=== PATIENT | female | born 1945 | race Caucasian/White ===

== ENCOUNTER 2018-01-09 13:39 | Inpatient (IN) | payer OTHER, MEDICARE ==
[2018-01-09 15:08] LABS: ADD MAN DIFF? NO
[2018-01-09 15:13] LABS: BASOPHIL # 0.1 10^3/ul (0.0-0.1); BASOPHILS % 0.3 % (0.0-2.0); EOSINOPHILS # 0.1 10^3/ul (0.0-0.5); EOSINOPHILS % 0.3 % (0.0-7.0); HEMATOCRIT 39.1 % (37.0-47.0); HEMOGLOBIN 12.6 g/dl (12.0-16.0); LYMPHOCYTES # 0.9 10^3/ul (0.8-2.9); LYMPHOCYTES % 5.2 % (15.0-51.0); MEAN CORPUSCULAR HEMOGLOBIN 28.1 pg (29.0-33.0); MEAN CORPUSCULAR HGB CONC 32.2 g/dl (32.0-37.0); MEAN CORPUSCULAR VOLUME 87.3 fl (82.0-101.0); MEAN PLATELET VOLUME 11.3 fl (7.4-10.4); MONOCYTE # 1.3 10^3/ul (0.3-0.9); MONOCYTES % 7.3 % (0.0-11.0); NEUTROPHIL # 15.2 10^3/ul (1.6-7.5); NEUTROPHILS % 86.4 % (39.0-77.0); PLATELET COUNT 237 10^3/UL (140-415); RED BLOOD COUNT 4.48 10^6/ul (4.20-5.40)
[2018-01-09 15:13] LABS: WHITE BLOOD COUNT 17.5 10^3/ul (4.8-10.8)
[2018-01-09] MEDS: CEFEPIME 2GM/50 ML (PMX) 50 ML IVPB (15:13)
[2018-01-09] MEDS: SODIUM CHLORIDE 0.9% 1L BAG IV* (15:13)
[2018-01-09] MEDS: ACETAMINOPHEN 325 MG TAB PO (15:13)
[2018-01-09 15:31] LABS: INR 1.05; PROTIME 13.8 Sec (11.9-14.9); PT RATIO 1.1
[2018-01-09 15:33] LABS: ANION GAP 11 (5-13); BLOOD UREA NITROGEN 15 mg/dl (7-20); CALCIUM 9.4 mg/dl (8.4-10.2); CARBON DIOXIDE 26 mmol/L (21-31); CHLORIDE 101 mmol/L (97-110); CREATININE 0.57 mg/dl (0.44-1.00); GLUCOSE 172 mg/dl (70-220); POTASSIUM 3.6 mmol/L (3.5-5.1); SODIUM 138 mmol/L (135-144)
[2018-01-09 15:44] LABS: TROPONIN-I < 0.012 ng/ml (0.000-0.120)
[2018-01-09] MEDS: VANCOMYCIN 1 GM (PMX) 250 ML IVPB (15:45)
[2018-01-09 17:15] LABS: ADD UMIC YES; UR ASCORBIC ACID NEGATIVE (NEGATIVE); UR BACTERIA FEW /HPF (NONE SEEN); UR BILIRUBIN (Dip) NEGATIVE (NEGATIVE); UR BLOOD (Dip) 1+ mg/dL (NEGATIVE); UR CLARITY SLIGHTLY CLOUDY (CLEAR); UR COLOR YELLOW (YELLOW); UR GLUCOSE (Dip) NEGATIVE (NEGATIVE); UR KETONES (Dip) NEGATIVE (NEGATIVE); UR LEUKOCYTE ESTERASE (Dip) 2+ Leu/ul (NEGATIVE); UR MUCUS FEW /HPF (NONE SEEN); UR NITRITE (Dip) POSITIVE (NEGATIVE); UR RBC 8 /HPF (0-5); UR SPECIFIC GRAVITY (Dip) 1.017 (1.003-1.030); UR SQUAMOUS EPITHELIAL CELL MODERATE /HPF (FEW); UR TOTAL PROTEIN (Dip) 2+ mg/dl (NEGATIVE); UR UROBILINOGEN (Dip) NEGATIVE (NEGATIVE); UR WBC > 182 /HPF (0-5)
[2018-01-09] MEDS: ONDANSETRON 4 MG INJ IV (18:14)
[2018-01-09] MEDS: morphine 4 MG/ML VIAL IV (18:15)
[2018-01-09] MEDS ORDERED: ONDANSETRON 4 MG INJ IV ×2 (18:30→21:00)
[2018-01-09] MEDS ORDERED: ACETAMINOPHEN 325 MG TAB PO ×2 (18:30→21:00)
[2018-01-09] MEDS ORDERED: NACL 0.9% 3 ML SYG IV (21:00)
[2018-01-09] MEDS ORDERED: GLUCOSE GEL 15 GRAM TUBE PO ×2 (21:00)
[2018-01-09] MEDS ORDERED: GLUCOSE GEL 15 GRAM TUBE BUCCAL (21:00)
[2018-01-09] MEDS ORDERED: BISACODYL 10 MG SUPP PR (21:00)
[2018-01-09] MEDS ORDERED: MAGNESIUM HYDROXIDE 30ML CUP PO (21:00)
[2018-01-09] MEDS: INSULIN ASPART [NOVOLOG] 3 ML PEN SC (21:00)
[2018-01-09] MEDS ORDERED: DEXTROSE 50% 50 ML SYRINGE IV ×2 (21:00)
[2018-01-09] MEDS ORDERED: DOCUSATE SODIUM 100 MG CAP PO (21:00)
[2018-01-09] MEDS ORDERED: GLUCAGON 1 MG INJ IM (21:00)
[2018-01-09] MEDS: HYDROCODONE/APAP (5/325) TAB PO (22:19)
[2018-01-09] MEDS: LOSARTAN 50 MG TAB PO (22:19)
[2018-01-09] MEDS: FAMOTIDINE 20 MG TAB PO (22:19)
[2018-01-09] MEDS: SOD CHLORIDE 0.9% 1,000 ML IV (22:27)
[2018-01-10] MEDS: MEROPENEM 1 GM/50ML(PMX) 50 ML IVPB ×4 (00:12→22:06)
[2018-01-10] MEDS: ACCU-CHEK XX (02:00)
[2018-01-10] MEDS: HYDROCODONE/APAP (5/325) TAB PO ×2 (05:33→17:31)
[2018-01-10 05:42] LABS: ADD MAN DIFF? NO
[2018-01-10 05:49] LABS: BASOPHIL # 0.1 10^3/ul (0.0-0.1); BASOPHILS % 0.3 % (0.0-2.0); EOSINOPHILS % 0.1 % (0.0-7.0); HEMATOCRIT 33.7 % (37.0-47.0); HEMOGLOBIN 10.8 g/dl (12.0-16.0); LYMPHOCYTES # 1.6 10^3/ul (0.8-2.9); LYMPHOCYTES % 9.3 % (15.0-51.0); MEAN CORPUSCULAR HEMOGLOBIN 28.1 pg (29.0-33.0); MEAN CORPUSCULAR VOLUME 87.5 fl (82.0-101.0); MEAN PLATELET VOLUME 12.1 fl (7.4-10.4); MONOCYTES % 5.7 % (0.0-11.0); NEUTROPHIL # 14.5 10^3/ul (1.6-7.5); NEUTROPHILS % 84.1 % (39.0-77.0); PLATELET COUNT 205 10^3/UL (140-415); RED BLOOD COUNT 3.85 10^6/ul (4.20-5.40); RED CELL DISTRIBUTION WIDTH 14.4 % (11.5-14.5)
[2018-01-10 05:49] LABS: WHITE BLOOD COUNT 17.3 10^3/ul (4.8-10.8)
[2018-01-10 06:17] LABS: ANION GAP 8 (5-13); BLOOD UREA NITROGEN 12 mg/dl (7-20); CALCIUM 8.2 mg/dl (8.4-10.2); CARBON DIOXIDE 26 mmol/L (21-31); CHLORIDE 103 mmol/L (97-110); CREATININE 0.51 mg/dl (0.44-1.00); GLUCOSE 145 mg/dl (70-220); MAGNESIUM 1.8 mg/dl (1.7-2.5); PHOSPHORUS 3.3 mg/dl (2.5-4.9); POTASSIUM 3.7 mmol/L (3.5-5.1); SODIUM 137 mmol/L (135-144)
[2018-01-10] MEDS: SOD CHLORIDE 0.9% 1,000 ML IV ×2 (06:42→10:05)
[2018-01-10] MEDS: INSULIN ASPART [NOVOLOG] 3 ML PEN SC ×7 (08:02→21:00)
[2018-01-10] MEDS: FAMOTIDINE 20 MG TAB PO ×2 (08:03→21:13)
[2018-01-10] MEDS: LOSARTAN 50 MG TAB PO ×2 (08:03→21:12)
[2018-01-10] MEDS: GABAPENTIN 100 MG CAP PO ×3 (09:55→21:13)
[2018-01-10] MEDS: INSULIN GLARGINE [LANTus] (100 UNITS/ML) SYG SC (20:14)
[2018-01-11] MEDS: SOD CHLORIDE 0.9% 1,000 ML IV (01:27)
[2018-01-11] MEDS: hydrALAzine 20 MG INJ IV (01:37)
[2018-01-11] MEDS: ACCU-CHEK XX (02:00)
[2018-01-11 05:13] LABS: ADD MAN DIFF? NO
[2018-01-11 05:23] LABS: WHITE BLOOD COUNT 10.2 10^3/ul (4.8-10.8)
[2018-01-11 05:23] LABS: BASOPHILS % 0.3 % (0.0-2.0); EOSINOPHILS # 0.1 10^3/ul (0.0-0.5); EOSINOPHILS % 1.4 % (0.0-7.0); HEMATOCRIT 32.4 % (37.0-47.0); HEMOGLOBIN 10.3 g/dl (12.0-16.0); LYMPHOCYTES # 1.4 10^3/ul (0.8-2.9); LYMPHOCYTES % 13.3 % (15.0-51.0); MEAN CORPUSCULAR HEMOGLOBIN 27.8 pg (29.0-33.0); MEAN CORPUSCULAR HGB CONC 31.8 g/dl (32.0-37.0); MEAN CORPUSCULAR VOLUME 87.3 fl (82.0-101.0); MEAN PLATELET VOLUME 12.1 fl (7.4-10.4); MONOCYTE # 0.9 10^3/ul (0.3-0.9); MONOCYTES % 8.8 % (0.0-11.0); NEUTROPHIL # 7.7 10^3/ul (1.6-7.5); NEUTROPHILS % 75.6 % (39.0-77.0); PLATELET COUNT 185 10^3/UL (140-415); RED BLOOD COUNT 3.71 10^6/ul (4.20-5.40)
[2018-01-11] MEDS: MEROPENEM 1 GM/50ML(PMX) 50 ML IVPB (05:37)
[2018-01-11 05:42] LABS: ANION GAP 7 (5-13); BLOOD UREA NITROGEN 8 mg/dl (7-20); CALCIUM 7.9 mg/dl (8.4-10.2); CARBON DIOXIDE 24 mmol/L (21-31); CHLORIDE 105 mmol/L (97-110); CREATININE 0.37 mg/dl (0.44-1.00); GLUCOSE 128 mg/dl (70-220); POTASSIUM 3.3 mmol/L (3.5-5.1); SODIUM 136 mmol/L (135-144)
[2018-01-11] MEDS: INSULIN ASPART [NOVOLOG] 3 ML PEN SC ×7 (08:09→20:13)
[2018-01-11] MEDS: POTASSIUM CHLORIDE (SR) 20 MEQ TAB PO (08:31)
[2018-01-11] MEDS: AMLODIPINE 10 MG TAB PO (08:32)
[2018-01-11] MEDS: GABAPENTIN 300 MG CAP PO ×2 (08:32→20:12)
[2018-01-11] MEDS: LOSARTAN 50 MG TAB PO (08:32)
[2018-01-11] MEDS: ATENOLOL 50 MG TAB PO (08:33)
[2018-01-11] MEDS: FAMOTIDINE 20 MG TAB PO ×2 (08:33→20:12)
[2018-01-11] MEDS: CIPROFLOXACIN 400MG/D5W 200 ML IVPB ×2 (09:08→20:11)
[2018-01-11] MEDS: INSULIN GLARGINE [LANTus] (100 UNITS/ML) SYG SC (20:10)
[2018-01-11] MEDS: HYDROCODONE/APAP (5/325) TAB PO (20:24)
[2018-01-12] MEDS: hydrALAzine 20 MG INJ IV ×2 (01:42→13:27)
[2018-01-12] MEDS: ACCU-CHEK XX (02:00)
[2018-01-12 06:43] LABS: ANION GAP 9 (5-13); BLOOD UREA NITROGEN 10 mg/dl (7-20); CALCIUM 8.4 mg/dl (8.4-10.2); CARBON DIOXIDE 24 mmol/L (21-31); CHLORIDE 106 mmol/L (97-110); CREATININE 0.36 mg/dl (0.44-1.00); GLUCOSE 119 mg/dl (70-220); POTASSIUM 3.6 mmol/L (3.5-5.1); SODIUM 139 mmol/L (135-144)
[2018-01-12] MEDS: INSULIN ASPART [NOVOLOG] 3 ML PEN SC ×7 (08:00→21:00)
[2018-01-12] MEDS: AMLODIPINE 10 MG TAB PO (09:38)
[2018-01-12] MEDS: GABAPENTIN 300 MG CAP PO ×2 (09:39→20:32)
[2018-01-12] MEDS: FAMOTIDINE 20 MG TAB PO ×2 (09:39→20:32)
[2018-01-12] MEDS: ATENOLOL 50 MG TAB PO (09:39)
[2018-01-12] MEDS: CIPROFLOXACIN 400MG/D5W 200 ML IVPB (09:39)
[2018-01-12] MEDS: LOSARTAN 50 MG TAB PO (09:39)
[2018-01-12] MEDS: CHLORTHALIDONE 25 MG TAB PO (11:06)
[2018-01-12] MEDS: DOCUSATE SODIUM 100 MG CAP PO (13:27)
[2018-01-12] MEDS: POLYETHYLENE GLYCOL 17 GM PACKET PO (13:27)
[2018-01-12] MEDS ORDERED: LABETALOL HCL 20MG INJ IV (14:00)
[2018-01-12] MEDS: INSULIN GLARGINE [LANTus] (100 UNITS/ML) SYG SC (20:33)
[2018-01-12] MEDS: INFLUENZA VIRUS VACCINE 0.5 ML (DISPENSING) IM* (21:06)
== END 2018-01-12 21:09 | DRG 872 ==
LOC: E/R 13:39 → PP2 18:19
DX: A41.51 Sepsis due to Escherichia coli [E. coli] (principal); N12 Tubulo-interstitial nephritis, not specified as acute or chronic; A41.9 Sepsis, unspecified organism; M72.2 Plantar fascial fibromatosis; I10 Essential (primary) hypertension; E11.9 Type 2 diabetes mellitus without complications; E78.5 Hyperlipidemia, unspecified; B96.20 Unspecified Escherichia coli [E. coli] as the cause of diseases classified elsewhere; M77.31 Calcaneal spur, right foot; Z86.73 Personal history of transient ischemic attack (TIA), and cerebral infarction without residual deficits; Z79.4 Long term (current) use of insulin
CPT/HCPCS: 36415; 70450; 71045; 73510; 73610-RT; 76775; 80048; 81001; 82962; 83036; 83605; 83735; 84100; 84484; 85025; 85610; 85730; 87040; 87086; 87400; 90686; 93005; 96374; 96375; 97161; 99291-25

== ENCOUNTER 2018-08-20 12:05 | Observation (INO) | payer OTHER, MEDICARE ==
[2018-08-20 12:49] LABS: ADD MAN DIFF? NO
[2018-08-20] MEDS: LABETALOL HCL 20MG INJ IV (12:51)
[2018-08-20 13:14] LABS: INR 0.86; PROTIME 11.8 Sec (11.9-14.9); PT RATIO 0.9
[2018-08-20 13:15] LABS: PARTIAL THROMBOPLASTIN TIME 21.1 Sec (23.0-35.0)
[2018-08-20 13:18] LABS: ALANINE AMINOTRANSFERASE 19 IU/L (13-69); ALBUMIN 4.5 g/dl (3.3-4.9); ALBUMIN/GLOBULIN RATIO 1.32; ALKALINE PHOSPHATASE 72 IU/L (42-121); ANION GAP 11 (5-13); ASPARTATE AMINO TRANSFERASE 26 IU/L (15-46); BILIRUBIN,INDIRECT 0.5 mg/dl (0-1.1); BILIRUBIN,TOTAL 0.5 mg/dl (0.2-1.3); BLOOD UREA NITROGEN 17 mg/dl (7-20); CALCIUM 9.8 mg/dl (8.4-10.2); CARBON DIOXIDE 23 mmol/L (21-31); CHLORIDE 105 mmol/L (97-110); CREATINE KINASE 105 IU/L (23-200); CREATININE 0.45 mg/dl (0.44-1.00); GLUCOSE 97 mg/dl (70-220); LIPASE 65 U/L (23-300); POTASSIUM 4.1 mmol/L (3.5-5.1); SODIUM 139 mmol/L (135-144); TOTAL PROTEIN 7.9 g/dl (6.1-8.1)
[2018-08-20] MEDS: NICARDipine HCL 30 MG CAPSULE PO (13:21)
[2018-08-20 13:32] LABS: ABNORMAL IP MESSAGE 1; ADD UMIC NO; B-TYPE NATRIURETIC PEPTIDE 588 PG/ML (0-125); BASOPHILS % 0.4 % (0.0-2.0); CK INDEX 1.6; CK-MB 1.65 ng/ml (0.0-2.4); EOSINOPHILS # 0.2 10^3/ul (0.0-0.5); EOSINOPHILS % 1.7 % (0.0-7.0); HEMATOCRIT 38.7 % (37.0-47.0); HEMOGLOBIN 12.6 g/dl (12.0-16.0); LYMPHOCYTES # 2.4 10^3/ul (0.8-2.9); MEAN CORPUSCULAR HEMOGLOBIN 28.2 pg (29.0-33.0); MEAN CORPUSCULAR HGB CONC 32.6 g/dl (32.0-37.0); MEAN CORPUSCULAR VOLUME 86.6 fl (82.0-101.0); MEAN PLATELET VOLUME 13.5 fl (7.4-10.4); MONOCYTE # 0.7 10^3/ul (0.3-0.9); MONOCYTES % 6.7 % (0.0-11.0); NEUTROPHIL # 6.4 10^3/ul (1.6-7.5); NEUTROPHILS % 65.9 % (39.0-77.0); PLATELET COUNT 188 10^3/UL (140-415); RED BLOOD COUNT 4.47 10^6/ul (4.20-5.40); RED CELL DISTRIBUTION WIDTH 13.5 % (11.5-14.5); TROPONIN-I < 0.012 ng/ml (0.000-0.120); UR ASCORBIC ACID NEGATIVE (NEGATIVE); UR BILIRUBIN (Dip) NEGATIVE (NEGATIVE); UR BLOOD (Dip) NEGATIVE (NEGATIVE); UR CLARITY CLEAR (CLEAR); UR COLOR STRAW (YELLOW); UR GLUCOSE (Dip) NEGATIVE (NEGATIVE); UR KETONES (Dip) NEGATIVE (NEGATIVE); UR LEUKOCYTE ESTERASE (Dip) NEGATIVE Leu/ul (NEGATIVE); UR NITRITE (Dip) NEGATIVE (NEGATIVE); UR SPECIFIC GRAVITY (Dip) 1.005 (1.003-1.030); UR TOTAL PROTEIN (Dip) NEGATIVE (NEGATIVE); UR UROBILINOGEN (Dip) NEGATIVE (NEGATIVE)
[2018-08-20 13:32] LABS: WHITE BLOOD COUNT 9.7 10^3/ul (4.8-10.8)
[2018-08-20 13:36] LABS: POSITIVE DIFF @See below
[2018-08-20] MEDS: ONDANSETRON 4 MG INJ IV (13:36)
[2018-08-20] MEDS: morphine 4 MG/ML VIAL IV (13:36)
[2018-08-20 13:52] LABS: URIC ACID 4.9 mg/dl (3.1-7.9)
[2018-08-20 13:53] LABS: ACETAMINOPHEN < 10.0 ug/ml (10.0-30.0)
[2018-08-20 13:53] LABS: ETHANOL < 10.0 mg/dl (0-0); SALICYLATE < 1.0 mg/dl (5.0-30.0)
[2018-08-20] MEDS: GABAPENTIN 300 MG CAP PO ×2 (14:56→22:45)
[2018-08-20] MEDS ORDERED: ACETAMINOPHEN 325 MG TAB PO (15:00)
[2018-08-20] MEDS ORDERED: ONDANSETRON 4 MG INJ IV (15:00)
[2018-08-20] MEDS ORDERED: NON-FORMULARY/PATIENT OWN MED (Sitagliptin* (Januvia*) 50 MG) PO (17:30)
[2018-08-20] MEDS: INSULIN ASPART [NOVOLOG] 3 ML PEN SC ×2 (17:55→20:17)
[2018-08-20] MEDS: ATENOLOL 50 MG TAB PO (18:00)
[2018-08-20] MEDS: LOSARTAN 50 MG TAB PO (18:19)
[2018-08-20] MEDS: ASPIRIN (EC) 81 MG TAB PO (18:20)
[2018-08-20] MEDS: LINAGLIPTIN 5 MG TABLET PO (18:20)
[2018-08-20] MEDS: metFORMIN 500 MG TAB PO (18:20)
[2018-08-20] MEDS: AMLODIPINE 10 MG TAB PO (18:20)
[2018-08-20] MEDS ORDERED: GLUCOSE GEL 15 GRAM TUBE BUCCAL (18:30)
[2018-08-20] MEDS ORDERED: GLUCAGON 1 MG INJ IM (18:30)
[2018-08-20] MEDS ORDERED: GLUCOSE GEL 15 GRAM TUBE PO ×2 (18:30)
[2018-08-20] MEDS ORDERED: DEXTROSE 50% 50 ML SYRINGE IV ×2 (18:30)
[2018-08-20] MEDS: morphine 2 MG INJ IV ×2 (19:55→22:53)
[2018-08-21] MEDS: LINAGLIPTIN 5 MG TABLET PO (08:28)
[2018-08-21] MEDS: GABAPENTIN 300 MG CAP PO (08:28)
[2018-08-21] MEDS: ASPIRIN (EC) 81 MG TAB PO (08:28)
[2018-08-21] MEDS: ATENOLOL 50 MG TAB PO (08:29)
[2018-08-21] MEDS: AMLODIPINE 10 MG TAB PO (08:29)
[2018-08-21] MEDS: LOSARTAN 50 MG TAB PO (08:29)
[2018-08-21] MEDS: INSULIN ASPART [NOVOLOG] 3 ML PEN SC ×2 (09:04→11:50)
[2018-08-21] MEDS: metFORMIN 500 MG TAB PO (12:29)
== END 2018-08-21 15:01 | disposition home or self-care (01) ==
LOC: E/R 12:05 → TEL 14:45
DX: I16.0 Hypertensive urgency (principal); I10 Essential (primary) hypertension; E78.5 Hyperlipidemia, unspecified; E11.40 Type 2 diabetes mellitus with diabetic neuropathy, unspecified; F03.90 Unspecified dementia, unspecified severity, without behavioral disturbance, psychotic disturbance, mood disturbance, and anxiety; Z86.73 Personal history of transient ischemic attack (TIA), and cerebral infarction without residual deficits
CPT/HCPCS: 36415; 70450; 70551; 71045; 73630; 80053; 80307; 81003; 82550; 82553; 82962; 83690; 83880; 84484; 84560; 85025; 85610; 85730; 93005; 93880; 96374; 96375; 99217; 99285-25